=== PATIENT | female | born 1975 | race Caucasian/White ===

== ENCOUNTER 2020-05-02 16:48 | Emergency (ER) | payer BC, SELFPAY ==
[~2020-05-02] VITALS: Ht 160 cm; Wt 67.1 kg
[2020-05-02 16:50] VITALS: Ht 160 cm; Wt 67.1 kg
[2020-05-02 18:40] VITALS: BP 94/61
== END 2020-05-02 18:40 | disposition home or self-care (01) ==
LOC: ED 16:48
DX: N12 Tubulo-interstitial nephritis, not specified as acute or chronic (principal); Z20.828 Contact with and (suspected) exposure to other viral communicable diseases
CPT/HCPCS: J0696; U0003-CS